=== PATIENT | male | born 1985 | race Caucasian/White ===

== ENCOUNTER 2016-11-05 22:55 | Emergency (ER) | payer OTHER ==
[~2016-11-05 22:55] MED LIST: ACID CONTROLLER20 MG PO; DUTOPROL 50-121 EACH MT; METOPROLOL SUCC25 MG PO; NEURONTIN 100100 MG PO; NORCO 5-325 TA1 EACH PO; NORCO 7.5-3251 EACH MT; PROTONIX40 MG PO; REQUIP0.25 MG PO; TRAMADOL HCL50 MG PO; TYLENOL WITH C1 EACH MT; ZOFRAN4 MG MT
[2016-11-06 00:35] LABS: BUN/CREATININE RATIO 23 (0-10)
== END 2016-11-06 01:18 | disposition home or self-care (01) ==
LOC: ER1 22:55
PROVIDERS: Specialist/Technologist Athletic Trainer
DX: F41.9 Anxiety disorder, unspecified (principal); R55 Syncope and collapse; E87.6 Hypokalemia; I10 Essential (primary) hypertension; M32.9 Systemic lupus erythematosus, unspecified; Z90.49 Acquired absence of other specified parts of digestive tract; Z88.0 Allergy status to penicillin; Z79.899 Other long term (current) drug therapy; Z79.891 Long term (current) use of opiate analgesic
CPT/HCPCS: 36415; 70450; 80053; 93005; 99284

== ENCOUNTER 2021-01-19 03:51 | Emergency (ER) | payer OTHER ==
[~2021-01-19 03:51] MED LIST changes: +FLEXERIL 10 MG10 MG PO; +IBUPROFEN600 MG PO; +MIRALAX 119 GR119 GM GT; +Voltaren Gel 1 % TOP; +ZITHROMAX250 MG PO
[2021-01-19 05:37] LABS: RED BLOOD COUNT 5.5 M/UL (4.20-5.50); WHITE BLOOD COUNT 10.3 K/UL (4.5-11.0)
[2021-01-19 05:59] LABS: BUN/CREATININE RATIO 17 (0-10)
== END 2021-01-19 07:17 | disposition home or self-care (01) ==
LOC: ER1 03:51
PROVIDERS: Family Medicine
DX: M79.10 Myalgia, unspecified site (principal); I10 Essential (primary) hypertension; F17.200 Nicotine dependence, unspecified, uncomplicated; Z88.0 Allergy status to penicillin; Z20.822 Contact with and (suspected) exposure to COVID-19
CPT/HCPCS: 0240U; 71045; 80053; 82550; 82553; 83605; 83690; 83874; 84484; 85025; 93005; 99284

== ENCOUNTER 2021-04-10 20:57 | Emergency (ER) | payer OTHER | END 2021-04-11 03:14 | disposition left against medical advice (07) | LOC: ER1 20:57 | DX: Z53.21 Procedure and treatment not carried out due to patient leaving prior to being seen by health care provider (principal) | CPT/HCPCS: 93005 ==

== ENCOUNTER 2021-11-07 11:06 | Emergency (ER) | payer OTHER ==
[2021-11-07] MEDS ORDERED: BACTROBAN OINT22 GM EXT (14:07)
[2021-11-07] MEDS ORDERED: NAPROXEN500 MG PO (14:07)
[2021-11-07] MEDS ORDERED: BACTRIM DS TAB1 EACH PO (14:07)
== END 2021-11-07 14:35 | disposition home or self-care (01) ==
LOC: ER1 11:06
DX: L02.511 Cutaneous abscess of right hand (principal); I10 Essential (primary) hypertension; F17.210 Nicotine dependence, cigarettes, uncomplicated; Z88.0 Allergy status to penicillin; Z88.5 Allergy status to narcotic agent
CPT/HCPCS: 10060; 73130; 99283